=== PATIENT | female | born 1950 | race Caucasian/White ===

== ENCOUNTER 2016-09-20 12:37 | Inpatient (IN) | payer OTHER ==
[~2016-09-20] VITALS: Ht 167.6 cm; Wt 99.8 kg
[2016-09-20] MEDS: IPRATROPIUM 0.5 MG/2.5 ML INHA NPPB SCH ×2 (00:55→18:40)
[2016-09-20] MEDS: ALBUTEROL/IPRATROPIUM 2.5MG/0.5MG, 3 ML INLINE SCH ×3 (00:55→23:00)
[~2016-09-20 12:37] MED LIST: ASPI-650 PO; ATOR40TA78 PO; ENAL10TA PO; FLUT1DIS IH; GABA300C10 PO; METH-356 PO; TIOT18CA INH
[2016-09-20] MEDS ORDERED: ALBUTEROL SULFATE 2.5 MG/3 ML ONE (12:46)
[2016-09-20] MEDS ORDERED: ALBUTEROL SULFATE 2.5 MG/3 ML NPPB ONE (12:50)
[2016-09-20] MEDS ORDERED: methylPREDNISolone SOD SUCC 125 MG/2 ML ONE ×2 (12:58→15:31)
[2016-09-20] MEDS ORDERED: SODIUM CHLORIDE FLUSH 10ML SYR IVF ONE (13:00)
[2016-09-20] MEDS ORDERED: methylPREDNISolone SOD SUCC 125 MG/2 ML IVP ONE (13:00)
[2016-09-20] MEDS ORDERED: SODIUM CHLORIDE 0.9% 1,000ML IVBOLUS ONE (13:00)
[2016-09-20 13:25] LABS: ABG COLLECTION SITE LEFT BRACHIAL
[2016-09-20 13:35] LABS: ASPARTATE AMINO TRANSFERASE 24 U/L (15-37); BLOOD UREA NITROGEN 16 mg/dL (7-18)
[2016-09-20 13:40] LABS: IS PT STATUS REG ER OR PRE ER? YES
[2016-09-20] MEDS ORDERED: SODIUM CHLORIDE FLUSH 10ML SYR IVF PRN (14:30)
[2016-09-20] MEDS ORDERED: ONDANSETRON 2MG/ML, 2ML IVPush PRN (14:30)
[2016-09-20] MEDS ORDERED: hydrALAzine 20 MG/ML, 1ML IVPush PRN (14:30)
[2016-09-20] MEDS ORDERED: ENALAPRILAT 1.25 MG/ML, 2ML IVPush PRN (14:30)
[2016-09-20] MEDS ORDERED: LORazepam 2 MG/ML, 1ML IVPush PRN (14:30)
[2016-09-20] MEDS ORDERED: POLYETHYLENE GLYCOL 17 GM PACKET PO PRN (14:30)
[2016-09-20] MEDS ORDERED: GUAIFENESIN/DM 200-20MG, 10ML UDC PO PRN (14:30)
[2016-09-20] MEDS ORDERED: OXYcodone IR 5MG TABLET PO PRN (14:30)
[2016-09-20 14:49] LABS: ABG COLLECTION SITE LEFT BRACHIAL
[2016-09-20] MEDS ORDERED: ALBUTEROL/IPRATROPIUM 2.5MG/0.5MG, 3 ML ONE (15:01)
[2016-09-20] MEDS: SODIUM CHLORIDE 0.9% 1,000 ML IV SCH (15:01)
[2016-09-20] MEDS ORDERED: ACETAMINOPHEN 325 MG TABLET ONE (15:24)
[2016-09-20] MEDS: AMPICILLIN/SULBACTAM 3 GM in SODIUM CHLORIDE 0.9% 100 ML IV SCH ×2 (15:30→21:39)
[2016-09-20] MEDS ORDERED: ENOXAPARIN 40 MG/0.4 ML ONE (15:31)
[2016-09-20] MEDS: ACETAMINOPHEN 325 MG TABLET PO PRN ×2 (15:36→23:48)
[2016-09-20] MEDS: methylPREDNISolone SOD SUCC 125 MG/2 ML IVPush SCH ×2 (15:36→20:59)
[2016-09-20] MEDS: ENOXAPARIN 40 MG/0.4 ML SQ SCH (15:37)
[2016-09-20] MEDS: METHADONE 10 MG TABLET PO SCH ×2 (17:47→20:58)
[2016-09-20] MEDS: GABAPENTIN 300 MG CAPSULE PO SCH (20:58)
[2016-09-20] MEDS: ATORVASTATIN 40 MG TABLET PO SCH (20:58)
[2016-09-20] MEDS: ENALAPRIL 10 MG TABLET PO SCH (20:58)
[2016-09-20] MEDS: FAMOTIDINE 20 MG/2 ML IVPush SCH (20:58)
[2016-09-21] MEDS: SODIUM CHLORIDE 0.9% 1,000 ML IV SCH ×2 (01:32→14:00)
[2016-09-21] MEDS: AMPICILLIN/SULBACTAM 3 GM in SODIUM CHLORIDE 0.9% 100 ML IV SCH ×4 (02:20→22:50)
[2016-09-21] MEDS: methylPREDNISolone SOD SUCC 125 MG/2 ML IVPush SCH ×4 (02:21→21:46)
[2016-09-21] MEDS: ALBUTEROL/IPRATROPIUM 2.5MG/0.5MG, 3 ML INLINE SCH ×3 (02:28→10:35)
[2016-09-21 04:00] VITALS: BP 105/45
[2016-09-21] MEDS: IPRATROPIUM 0.5 MG/2.5 ML INHA NPPB SCH (04:30)
[2016-09-21 04:36] LABS: ABG COLLECTION SITE LEFT BRACHIAL
[2016-09-21 04:49] LABS: ASPARTATE AMINO TRANSFERASE 17 U/L (15-37); BLOOD UREA NITROGEN 18 mg/dL (7-18)
[2016-09-21] MEDS: ASPIRIN 325 MG TABLET EC PO SCH (06:25)
[2016-09-21 08:41] LABS: ABG COLLECTION SITE RIGHT BRACHIAL; FIO2 40 %
[2016-09-21] MEDS ORDERED: SENNA/DOCUSATE TABLET PO SCH (09:00)
[2016-09-21] MEDS: METHADONE 10 MG TABLET PO SCH ×3 (09:08→21:47)
[2016-09-21] MEDS: GABAPENTIN 300 MG CAPSULE PO SCH ×2 (09:10→21:47)
[2016-09-21] MEDS: FAMOTIDINE 20 MG/2 ML IVPush SCH ×2 (09:12→21:47)
[2016-09-21] MEDS: FLUTICASONE/VILANTEROL 100-25MCG/INH INH SCH (12:23)
[2016-09-21] MEDS: ACETAMINOPHEN 325 MG TABLET PO PRN (14:24)
[2016-09-21] MEDS: ALBUTEROL/IPRATROPIUM 2.5MG/0.5MG, 3 ML NPPB SCH (14:53)
[2016-09-21] MEDS: ENOXAPARIN 40 MG/0.4 ML SQ SCH (15:33)
[2016-09-21 19:15] VITALS: BP 143/80
[2016-09-21] MEDS: ATORVASTATIN 40 MG TABLET PO SCH (21:47)
[2016-09-21] MEDS: ENALAPRIL 10 MG TABLET PO SCH (21:47)
[2016-09-22] MEDS: SODIUM CHLORIDE 0.9% 1,000 ML IV SCH ×3 (01:55→22:00)
[2016-09-22] MEDS: methylPREDNISolone SOD SUCC 125 MG/2 ML IVPush SCH ×4 (01:56→20:30)
[2016-09-22 03:25] VITALS: BP 133/77
[2016-09-22] MEDS: ASPIRIN 325 MG TABLET EC PO SCH ×2 (06:00→06:10)
[2016-09-22] MEDS: AMPICILLIN/SULBACTAM 3 GM in SODIUM CHLORIDE 0.9% 100 ML IV SCH ×3 (06:10→19:30)
[2016-09-22] MEDS: SENNA/DOCUSATE TABLET PO SCH (09:00)
[2016-09-22] MEDS: GABAPENTIN 300 MG CAPSULE PO SCH ×2 (09:00→21:30)
[2016-09-22] MEDS: FAMOTIDINE 20 MG/2 ML IVPush SCH ×2 (09:00→22:30)
[2016-09-22] MEDS: METHADONE 10 MG TABLET PO SCH ×2 (16:00→21:30)
[2016-09-22] MEDS: ATORVASTATIN 40 MG TABLET PO SCH (21:30)
[2016-09-23] MEDS: AMPICILLIN/SULBACTAM 3 GM in SODIUM CHLORIDE 0.9% 100 ML IV SCH ×4 (01:30→22:43)
[2016-09-23] MEDS: methylPREDNISolone SOD SUCC 125 MG/2 ML IVPush SCH ×3 (02:30→14:30)
[2016-09-23] MEDS: ASPIRIN 325 MG TABLET EC PO SCH (06:00)
[2016-09-23] MEDS: FAMOTIDINE 20 MG/2 ML IVPush SCH ×2 (08:00→21:00)
[2016-09-23] MEDS: SODIUM CHLORIDE 0.9% 1,000 ML IV SCH ×2 (08:00→17:00)
[2016-09-23] MEDS: SENNA/DOCUSATE TABLET PO SCH (08:00)
[2016-09-23] MEDS: METHADONE 10 MG TABLET PO SCH ×4 (08:00→22:30)
[2016-09-23] MEDS: FLUTICASONE/VILANTEROL 100-25MCG/INH INH SCH (09:00)
[2016-09-23 14:24] VITALS: BP 164/77
[2016-09-23] MEDS: ALBUTEROL/IPRATROPIUM 2.5MG/0.5MG, 3 ML NPPB SCH ×2 (15:00→19:20)
[2016-09-23] MEDS: ENOXAPARIN 40 MG/0.4 ML SQ SCH (15:30)
[2016-09-23] MEDS: ACETAMINOPHEN 325 MG TABLET PO PRN ×2 (18:31→22:21)
[2016-09-23 19:35] VITALS: BP 168/80
[2016-09-23] MEDS: GABAPENTIN 300 MG CAPSULE PO SCH (21:00)
[2016-09-23] MEDS: ENALAPRIL 10 MG TABLET PO SCH ×2 (21:00→21:01)
[2016-09-23] MEDS: ATORVASTATIN 40 MG TABLET PO SCH ×2 (21:00→21:01)
[2016-09-23] MEDS: methylPREDNISolone SOD SUCC 40 MG/ML IVPush SCH (23:51)
[2016-09-24 02:18] VITALS: BP 158/72
[2016-09-24] MEDS: AMPICILLIN/SULBACTAM 3 GM in SODIUM CHLORIDE 0.9% 100 ML IV SCH ×2 (04:25→09:43)
[2016-09-24] MEDS: methylPREDNISolone SOD SUCC 40 MG/ML IVPush SCH ×2 (05:35→11:30)
[2016-09-24 05:42] LABS: BLOOD UREA NITROGEN 25 mg/dL (7-18)
[2016-09-24] MEDS: ALBUTEROL/IPRATROPIUM 2.5MG/0.5MG, 3 ML NPPB SCH ×2 (07:08→10:05)
[2016-09-24 07:18] VITALS: BP 169/94
[2016-09-24] MEDS ORDERED: ASPI-650 PO (08:18)
[2016-09-24] MEDS ORDERED: PRED20TA PO (08:18)
[2016-09-24] MEDS ORDERED: GUAI200T3 PO (08:30)
[2016-09-24] MEDS: ACETAMINOPHEN 325 MG TABLET PO PRN (08:49)
[2016-09-24] MEDS: METHADONE 10 MG TABLET PO SCH ×3 (08:49→20:39)
[2016-09-24] MEDS: FLUTICASONE/VILANTEROL 100-25MCG/INH INH SCH ×2 (08:50→09:38)
[2016-09-24] MEDS: SENNA/DOCUSATE TABLET PO SCH (08:50)
[2016-09-24] MEDS ORDERED: KETOROLAC 30 MG/1 ML IM PRN (13:30)
[2016-09-24] MEDS ORDERED: CYCLOBENZAPRINE 10 MG TABLET PO ONE (14:00)
[2016-09-24 15:28] VITALS: BP 172/93
[2016-09-24] MEDS: ENOXAPARIN 40 MG/0.4 ML SQ SCH (15:48)
[2016-09-24 19:23] VITALS: BP 172/83
[2016-09-24] MEDS: GABAPENTIN 300 MG CAPSULE PO SCH (20:39)
[2016-09-24] MEDS: ATORVASTATIN 40 MG TABLET PO SCH (20:39)
[2016-09-25 02:31] VITALS: BP 160/81
[2016-09-25] MEDS: ACETAMINOPHEN 325 MG TABLET PO PRN ×2 (02:54→10:01)
[2016-09-25] MEDS: ASPIRIN 325 MG TABLET EC PO SCH (05:34)
[2016-09-25 07:36] VITALS: BP 163/84
[2016-09-25] MEDS: METHADONE 10 MG TABLET PO SCH (08:30)
[2016-09-25] MEDS: SENNA/DOCUSATE TABLET PO SCH (08:30)
[2016-09-25] MEDS: GABAPENTIN 300 MG CAPSULE PO SCH (08:30)
[2016-09-25] MEDS: FLUTICASONE/VILANTEROL 100-25MCG/INH INH SCH (08:31)
[2016-09-25 10:02] VITALS: BP 150/65
[2016-09-25] MEDS ORDERED: ALBUTEROL/IPRATROPIUM 2.5MG/0.5MG, 3 ML NPPB PRN (11:00)
== END 2016-09-25 13:15 | disposition home or self-care (01) | DRG 177 ==
LOC: ED 14:08 → EDIP 14:09 → ED 14:32 → CCU 16:55 → 3NE 09-21 18:16 → DCLOUNGE 09-25 12:24
PROVIDERS: ADMIT Internal Medicine; ATTEND Internal Medicine
PROC: 5A09457 Assistance with Respiratory Ventilation, 24-96 Consecutive Hours, Continuous Positive Airway Pressure (ICD-10-PCS; principal; 2016-09-20)
DX: J69.0 Pneumonitis due to inhalation of food and vomit (principal); J96.21 Acute and chronic respiratory failure with hypoxia; J96.22 Acute and chronic respiratory failure with hypercapnia; J44.1 Chronic obstructive pulmonary disease with (acute) exacerbation; F11.20 Opioid dependence, uncomplicated; E87.2 Acidosis; D72.829 Elevated white blood cell count, unspecified; G89.4 Chronic pain syndrome; I10 Essential (primary) hypertension; M19.072 Primary osteoarthritis, left ankle and foot; M54.2 Cervicalgia; Z80.9 Family history of malignant neoplasm, unspecified; Z99.81 Dependence on supplemental oxygen; Z82.49 Family history of ischemic heart disease and other diseases of the circulatory system; Z86.73 Personal history of transient ischemic attack (TIA), and cerebral infarction without residual deficits; Z87.891 Personal history of nicotine dependence; Z90.89 Acquired absence of other organs; Z79.82 Long term (current) use of aspirin; Z79.899 Other long term (current) drug therapy; Z88.2 Allergy status to sulfonamides; Z88.1 Allergy status to other antibiotic agents; Z98.1 Arthrodesis status
CPT/HCPCS: 36415; 36600; 71010; 80048; 80053; 82803; 83605; 83880; 84145; 84484; 85025; 85610; 85730; 87040; 87070; 87081; 87205; 94640; 94660; 96361; 96365; 96372; 96375; 96376; J0295; J1650; J2405; J7620; J7644; J2920; J2930; J7030; J7512; S0028